=== PATIENT | male | born 1955 | race Caucasian/White ===

== ENCOUNTER 2022-08-25 07:45 | Outpatient (CLI) | payer BC, SELFPAY ==
--- NOTE | ~2022-08-25 | CT_ITS ---
EXAMINATION: CT LE LT wo con DATE: 08/25/2022 08:21 INDICATION: Left knee osteoarthritis. TECHNIQUE: Computed tomography (CT) of the left lower limb was performed without intravenous contrast . Automated exposure control and iterative reconstruction technique were employed. The dose-length pr oduct was 1747.98 mGy-cm. COMPARISON: Left knee radiographs 09/22/2022 FINDINGS: There is moderate left hip osteoarthritis. The left knee demonstrates moderate osteoarthrit is of the medial compartment and mild osteoarthritis of the lateral and patellofemoral compartments. There is a small knee joint effusion. There is mild ankle joint osteoarthritis. There is heterotopic ossification distal to medial malleolus. IMPRESSION: 1. Moderate left knee osteoarthritis. 2. Small left knee joint effusion. 3. Moderate left hip osteoarthritis. Reviewed, dictated and finalized at location A. MIXER OPERATOR
--- NOTE | 2022-08-25 08:25 | ECG_ITS ---
Measurements Intervals [place] Rate: 64 P: 48 MS: 174 QRS: 9 QRSD: 108 T: 38 QT: 393 QTc: 406 Interpretive Statements SINUS RHYTHM DELAYED PRECORDIAL R/S TRANSITION BORDERLINE ECG NO PREVIOUS ECG AVAILABLE FOR COMPARISON Electronically Signed On 08-25-2022 9:27:59 INSURANCE CLAIMS ANALYST by Enrico Portillo D.O.
[2022-08-25 09:07] LABS: Hematocrit 44.6 % (42.0-52.0); Hemoglobin 14.5 g/dL (14.0-18.0)
[2022-08-25 09:22] LABS: Albumin Level 4.3 g/dL (3.5-5.1); Estimated Glomerular Filt Rate > 60; Glucose 151 mg/dL (65-110)
== END 2022-08-25 07:46 | disposition home or self-care (01) ==
PROVIDERS: PCP Family Medicine; Visit Provider Orthopaedic Surgery
DX: M17.12 Unilateral primary osteoarthritis, left knee (principal); I10 Essential (primary) hypertension; Z01.818 Encounter for other preprocedural examination; M25.462 Effusion, left knee; M16.12 Unilateral primary osteoarthritis, left hip
CPT/HCPCS: 36415; 73700; 82040; 82565; 82947; 85014; 85018; 93005

== ENCOUNTER 2022-10-01 11:45 | Outpatient (CLI) | payer BC, SELFPAY ==
[2022-10-01 14:23] LABS: Basophils Percent Auto 0.7 % (0.2-1.2); Eosinophils Absolute Auto 0.2 K/mm3 (0-0.3); Eosinophils Percent Auto 2.5 % (0-4.4); Hematocrit 42.6 % (42.0-52.0); Hemoglobin 13.9 g/dL (14.0-18.0); Immature Granulocyte Absolute 0.02 K/mm3 (0.00-0.031); Immature Granulocyte Percent A 0.3 % (0-0.5); Lymphocytes Absolute Auto 1.09 K/mm3 (0.9-3.2); Lymphocytes Percent Auto 18.2 % (18.3-44.2); Mean Corpuscular HGB Conc 32.6 g/dl (32-36); Mean Corpuscular Hemoglobin 24.8 pg (26-34); Mean Corpuscular Volume 75.9 fl (80-100); Mean Platelet Volume 10.3 fl (7.4-10.4); Monocytes Absolute Auto 0.6 K/mm3 (0.1-0.6); Monocytes Percent Auto 10.5 % (2.6-8.5); Neutrophils Absolute Auto 4.1 K/mm3 (1.3-6.7); Neutrophils Percent Auto 67.8 % (45.5-73.1); Platelet Count Result 258 k/mm3 (150-375); Red Blood Count 5.61 M/mm3 (4.6-6.20); Red Cell Distribution Width 14.3 % (11.5-14.5)
[2022-10-01 14:32] LABS: Anion Gap 11 mmol/L (8-16); Blood Urea Nitrogen 13 mg/dL (9-20); Calcium 8.8 mg/dL (8.4-10.2); Carbon Dioxide 26 mmol/L (22-30); Chloride 98 mmol/L (98-107); Estimated Glomerular Filt Rate > 60; Glucose 181 mg/dL (65-110); Potassium 3.5 mmol/L (3.4-5.0); Sodium 135 mmol/L (137-145)
[2022-10-01 14:36] LABS: Urine Cotinine NEGATIVE
[2022-10-01 16:42] LABS: Hemoglobin A1C 6.7 % (<5.7)
== END 2022-10-01 11:46 | disposition home or self-care (01) ==
LOC: ANHSURGERY 11:58
PROVIDERS: Anesthesiology; PCP Family Medicine; Visit Provider Orthopaedic Surgery
DX: M17.12 Unilateral primary osteoarthritis, left knee (principal); I10 Essential (primary) hypertension; Z01.818 Encounter for other preprocedural examination
CPT/HCPCS: 36415; 80048; 80307; 83036; 85025; 87081

== ENCOUNTER 2022-10-20 00:40 | Day surgery (SDC) | payer BC, SELFPAY ==
[2022-10-01 12:02] VITALS: BMI 33.6
--- NOTE | 2022-10-01 12:40 | PC.NURSE ---
Report to the Outpatient Waiting Room, entrance under the green pavilion located off [facility], at time __0600 on date __10/20/22 . Planned Procedure Time: __07 . Time changes happen often and if your time is changed the preop area will call you the afternoon before. - You and your visitor will be asked to self-screen and do not enter if you have any COVID symptoms. - Only one visitor is requested with a max of two and NO children visitors are allowed at this time. - The patient visitor may be requested to leave or wait in car when not with patient due to distancing restrictions. - A mask is optional within the hospital. Patients may have clear liquids (water, carbonated beverages, clear teas, apple juice) until 3 hours prior to surgery with a maximum of 20 ounces. - No food from midnight until time of surgery - Infants may have breast milk until 4 hours before surgery, formula 6 hours prior to surgery. - Children will be allowed to drink immediately following surgery. If applicable, please bring a bottle or sippy cup to assist with drinking. Juice, water, soda, and popsicles are readily available. For infants on formula, please bring formula the day of surgery. Pacifiers are allowed. Take the following medications with a SIP of water the morning of surgery: _ESCITALOPRAM,METOPROLOL Medications to discontinue per physician __PT STATES HOLD ASPIRIN AND ALL VITAMINS AND SUPPLEMENTS 7 DAYS PRE OP PER DR DUBON Date to take last dose 10/12/22 Please no make-up, nail hungarian, hairspray, perfume, deodorant, or body powder the day of surgery. No jewelry (including any body piercings) or valuables the day of surgery, leave them at home. Please take a shower or bath the night before, or the morning of, surgery with an antibacterial soap. Wear comfortable, loose fitting clothing. Children are encouraged to wear pajamas. - Jewelry must be removed prior to entering the operating room. Rings and piercings that are not removed may be cut off. - The hospital will not accept responsibility for valuables. - Please leave all valuables, including medications, at home the day of surgery. If you are going home after surgery, a licensed show horse driver must drive you home. - NO public transportation without another adult if you receive anesthesia. - We recommend that an adult stay with you for 24 hours following discharge. - We also recommend that you do not drive, make important decision, drink alcoholic beverages, or take any drugs that were not prescribed by your health care provider for at least 24 hours after your discharge time. Follow any additional instructions given to you from your surgeon. If you or anyone in your household have experienced Covid symptoms in the past week, please notify your surgeon or the nurse liaison at the phone number below for possible testing. VERBAL AND WRITTEN instructions given to __PATIENT and asked if any additional questions and then verbalized understanding. Patient advised to call surgeon office or pre surgery nurse liaison [phone] if any additional questions.
[2022-10-01 12:54] VITALS: BP 141/80; PULSE 81; RESP 18; TEMP 36.7; O2SAT 99
--- NOTE | 2022-10-19 14:04 | WPDANESEPPF ---
Anes - Initial Pre Proc Eval Procedure: Operation Date: 10/20/22 07:30 Proposed Procedures p Left Custom Total Knee Arthroplasty - Antonio Cota MD Date/Time: 10/19/22 14:04 Surgeon: Antonio Cota MD Pre Op Diagnosis: primary oa left knee Patient Data Age: 67 Gender: M Height: 1.75 m Weight: 103.3 kg Last Vital Signs Temp 36.7 C 10/01/22 12:54 Pulse 81 10/01/22 12:54 Resp 18 10/01/22 12:54 BP 141/80 H 10/01/22 12:54 Pulse Ox 99 10/01/22 12:54 O2 Del Method Room Air 10/01/22 12:54 Allergies Allergy/AdvReac Type Severity Reaction Status Date / Time No Known Allergies Allergy Verified 10/20/22 06:23 Home Medications Medication Instructions Recorded Confirmed Type escitalopram oxalate 10 mg tablet 10 mg PO DAILY 08/08/19 10/20/22 History hydrochlorothiazide 25 mg tablet 25 mg PO DAILY 08/08/19 10/20/22 History losartan 50 mg tablet 50 mg PO DAILY 08/08/19 10/20/22 History metoprolol succinate 25 mg 12.5 mg PO DAILY 07/24/20 10/20/22 History tablet,extended release 24 hr rosuvastatin 20 mg tablet 20 mg PO DAILY 07/24/20 10/20/22 History aspirin 81 mg tablet,delayed 81 mg PO DAILY 10/01/22 10/20/22 History release (Adult Low Dose Aspirin) cinnamon bark 500 mg capsule 2,000 mg PO DAILY 10/01/22 10/20/22 History (Cinnamon) coQ10 (ubiquinol) 200 mg capsule 400 mg PO DAILY 10/01/22 10/20/22 History glucosamine sulf dipot 1 cap PO DAILY 10/01/22 10/20/22 History chlr,msm,chond 550 mg-C 30 mg-leah 1 mg capsule (Glucosamine Chondroitin) krill 1 cap PO DAILY 10/01/22 10/20/22 History mqn-zb-0-sjc-tlf-pkunxaiqgbghe 300 mg-90 mg-24 mg-50 mg capsule (krill oil) magnesium 200 mg tablet 400 mg PO DAILY 10/01/22 10/20/22 History metformin 750 mg tablet,extended 750 mg PO HS 10/01/22 10/20/22 History release 24 hr dufwnodp-qst-fiqop acid 300 1 tablet PO DAILY 10/01/22 10/20/22 History mcg-lycopene 600 mcg-lutein 300 mcg tablet (Centrum Silver Men) ECG: Date of Service: 08/25/22 Procedure(s): CA 12 lead EKG Accession Number(s): [id number] cc: ~ ? Measurements Intervals? [place]? Rate: ? 64 ? P:? 48 [place]: ? 174? QRS:? 9 QRSD: ? 108? T:? 38 QT: ? 393? QTc:? 406? Interpretive Statements SINUS RHYTHM DELAYED PRECORDIAL R/S TRANSITION BORDERLINE ECG NO PREVIOUS ECG AVAILABLE FOR COMPARISON Electronically Signed On 08-25-2022 9:27:59 PHARMACEUTICAL SALES by Enrico Portillo D.O. Patient hx anesthesia problems: none Family hx anesthesia problems: none Results Review: All pre-operative results and documents have been reviewed as part of the pre-operative evaluation. [facility] Past Medical History Medical History (Updated 10/19/22 @ 14:05 by Jeremias Jasmine MD) Anxiety Depression Diabetes History of aneurysm Hypercholesterolemia Hypertension Left knee pain Neck pain with history of cervical spinal surgery Obesity LYUDMILA on CPAP Primary osteoarthritis of left knee Surgical History Surgical History History of total hip arthroplasty Family History Family History Other Diabetes mellitus Family history of arthritis Social History Social History Years smoked: 8 Smoking status: Former smoker Tobacco type: cigarettes Smoking end date: 09/27/87 Additional smoking assessment comments: DENIES ANY FORM OF TOBACCO USE Alcohol intake: never Lack of Transportation: No Lack of Food: Never True Current Housing: I Have Housing Concerned About Future Housing: No Difficulty Paying Gas/
--- NOTE | 2022-10-19 14:07 | WPDANESPNB ---
Anes - Peripheral Nerve Block Date/Time: 10/19/22 14:07 I have discussed with the patient/family/POA the placement of a peripheral nerve block for post-operative pain management, including associated risks, benefits, complications, and side effects. Alternative methods of post-operative analgesia were detailed. Questions were solicited and answers provided to the satisfaction of the patient/family/POA. Time-Out: A pre-procedural Time-Out was completed immediately before starting the procedure and confirmed: Patient Identification, Site, Procedure, Patient Position and the Availability of Requisite Equipment. Clinical Indications: Acute post-operative pain management requested by the operative surgeon. Nerve Block Insertion Note Anes-nerve block: adductor canal Patient position: supine Skin prep: chlorhexidine Needle: 22 gauge, stimulating, insulated echogenic needle. Needle length: 80 mm Technique: ultrasound Technique comment: in plane Injectate: bupivacaine 0.25% with epi 5 mcg/ml (30cc) Observations: tolerated well Complications: none Procedure start time:: 720 Procedure end time:: 725
[2022-10-20] VITALS (13 sets, daily range): BP systolic 112–156; BP diastolic 57–96; PULSE 63–87; RESP 10–20; TEMP 35.9–36.7; O2SAT 97–100
--- NOTE | ~2022-10-20 | XR_ITS ---
Left Knee Technique: AP and lateral views Clinical History: Status post TKR Findings: Patient is status post total knee replacement. Orthopedic hardware alignment appears anatom ic. No hardware complication is evident. Subcutaneous emphysema and swelling is likely postoperative in nature. No acute osseous fracture is seen. Impression: Status post total knee replacement, without evidence of hardware complication. Reviewed, dictated and finalized at location . ALION FIRE CHIEF Impression: Status post total knee replacement, without evidence of hardware complication.
[2022-10-20] MEDS: ACETAMINOPHEN 500 MG TABLET 1000 MG PO (06:27)
[2022-10-20] MEDS: LACTATED RINGERS 1,000 ML 30 ML IV CONT ×2 (06:40→10:06)
[2022-10-20 06:46] LABS: Glucose Point of Care 127 mg/dl (65-105)
[2022-10-20] MEDS: TRANEXAMIC ACID 1,000MG/ISO100 1,000 MG/100 ML BAG 200 MG IVPB (07:10)
--- NOTE | 2022-10-20 07:16 | WPDHPUPDATE1 ---
History and Physical Update Update Date/Time: 10/20/22 07:16 History and Physical has been reviewed, including an updated exam of the patient. There are NO changes in the patient's condition. Risks, benefits, and alternatives have been discussed and questions answered. Patient agrees to proceed with procedure.
[2022-10-20] MEDS: ceFAZolin 2 GM/D5W 50 ML 2 GM/50 ML BAG IVPB ×3 (07:32→22:42)
[2022-10-20] MEDS: GENTAMICIN BONE CEMENT REFOBACIN 1 EACH TOPICAL (08:25)
[2022-10-20 10:13] LABS: Glucose Point of Care 169 mg/dl (65-105)
[2022-10-20] MEDS: fentaNYL CITRATE INJ (*CRX) 100 MCG/2 ML VIAL 25 MCG IV PUSH ×2 (10:15→10:55)
[2022-10-20] MEDS: SODIUM CHLORIDE 0.9% IV 1,000 ML 125 ML IV CONT (12:21)
--- NOTE | 2022-10-20 14:45 | W.PM.PROC2 ---
Procedure Note - Detailed Date of Procedure 10/20/22 Pre-op Diagnosis primary oa left knee Post-op Diagnosis Same Procedure Performed Total knee arthroplasty, left knee. Surgeon Antonio Cota MD Consulting Technical Manager Rosy Waldron PA-C Anesthesia General and Regional (Subsartorial block.) Findings PSI with Conformis Imprint. Excellent bone quality. Severe chronic varus thrust and varus bow to the tibia. Tibia component placed in slight varus. Moderate to large medial release performed. Description of Procedure Preoperative antibiotics were given. The limb was prepped and draped in the usual sterile fashion with a well-padded tourniquet high on the thigh. The limb was exsanguinated and the tourniquet inflated to 300 mmHg, during exposure. A longitudinal incision was created just medial to the patella. A trivector approach to the knee was performed. Arthrotomy was taken down through the joint capsule. No significant releases were initially taken. The femur was exposed and the F1 jig was applied. The coring tool was used to remove the cartilage for the F2 jig to sit flush with the bone. The jig was pinned and the distal cut carefully taken. Caliper measurements confirmed appropriate bony resections according to the preoperative templated plan. The F4 cutting jig for the femur was applied, at the standard rotation. The AP and anterior chamfer cuts were taken. The F5 jig was applied and the posterior chamfer cuts were taken. The tibia was prepared using the T1 jig, after removing cartilage for the jig contact points. Proper alignment was checked with the alignment subhash. The tibia was cut using the T1u guide. Gap balancing was performed. Gap measurements were taken and the knee was trialed. Excellent alignment and soft tissue balancing was confirmed. The posterior cruciate ligament was recessed along the proximal tibia. Meniscal remnants were removed. The trial components were assembled. Excellent range of motion and proper soft tissue balancing were confirmed throughout the full range of motion. Patellar tracking was excellent. The knee was copiously irrigated periodically throughout the procedure. The real implants were cemented into position. Excess cement was carefully removed. The wound was closed in layers with interrupted #1 Vicryl suture, 2-0 strata fix suture, 0 strata fix suture, 2-0 strata fix suture. Steri-Strips placed on the skin with the knee flexed. Sterile bulky dressing applied. The patient was brought to the recovery room in stable condition. There were no complications. Physician events assistant, Rosy Waldron PA-C, required for surgery; including patient positioning, draping, tissue retraction, maintaining instrument positionl, wound closure, and dressing placement. Implants Conformis Imprint total knee arthroplasty. Cemented. Cruciate retaining. 10mm insert. Estimated Blood Loss -50.0 Drains No Complications No immediate complications Condition Stable Disposition PACU [facility] Billing Surgery - Charge Forward: Surgery Billing
[2022-10-20] MEDS: oxyCODONE HCL (*CRX) 5 MG TAB IR PO ×2 (17:27→22:41)
[2022-10-20] MEDS: SENNA/DOCUSATE SODIUM TABLET 2 TAB PO (17:28)
[2022-10-20] MEDS: ASPIRIN 81 MG ENTERIC TABLET PO (17:28)
[2022-10-20] MEDS: FAMOTIDINE 20 MG TABLET PO (20:47)
[2022-10-20] MEDS: diphenhydrAMINE HCl INJ 50 MG/ML VIAL 25 MG IV PUSH (22:41)
[2022-10-21 00:56] VITALS: BP 110/70; PULSE 82; RESP 14; TEMP 36.8; O2SAT 98
[2022-10-21 05:10] VITALS: BP 128/68; PULSE 75; RESP 14; TEMP 36.6; O2SAT 99
[2022-10-21] MEDS: oxyCODONE HCL (*CRX) 5 MG TAB IR PO (05:36)
[2022-10-21] MEDS: ceFAZolin 2 GM/D5W 50 ML 2 GM/50 ML BAG IVPB (05:38)
[2022-10-21 06:34] LABS: Basophils Percent Auto 0.4 % (0.2-1.2); Eosinophils Percent Auto 0.2 % (0-4.4); Hematocrit 33.9 % (42.0-52.0); Hemoglobin 10.7 g/dL (14.0-18.0); Immature Granulocyte Absolute 0.02 K/mm3 (0.00-0.031); Immature Granulocyte Percent A 0.2 % (0-0.5); Lymphocytes Absolute Auto 1.14 K/mm3 (0.9-3.2); Lymphocytes Percent Auto 13.7 % (18.3-44.2); Mean Corpuscular HGB Conc 31.6 g/dl (32-36); Mean Corpuscular Hemoglobin 24.6 pg (26-34); Mean Corpuscular Volume 77.9 fl (80-100); Mean Platelet Volume 9.5 fl (7.4-10.4); Monocytes Percent Auto 12.2 % (2.6-8.5); Neutrophils Absolute Auto 6.1 K/mm3 (1.3-6.7); Neutrophils Percent Auto 73.3 % (45.5-73.1); Platelet Count Result 174 k/mm3 (150-375); Red Blood Count 4.35 M/mm3 (4.6-6.20); Red Cell Distribution Width 14.6 % (11.5-14.5); White Blood Count 8.3 K/mm3 (4.5-10.0)
[2022-10-21 06:47] LABS: Anion Gap 4 mmol/L (8-16); Blood Urea Nitrogen 15 mg/dL (9-20); Calcium 7.8 mg/dL (8.4-10.2); Carbon Dioxide 26 mmol/L (22-30); Chloride 103 mmol/L (98-107); Estimated CRCL calculation 80 ml/min; Estimated Glomerular Filt Rate > 60; Glucose 127 mg/dL (65-110); Potassium 3.6 mmol/L (3.4-5.0); Sodium 133 mmol/L (137-145)
--- NOTE | 2022-10-21 07:40 | WPDANESPN ---
Anes - Prog Note Post-Op Date/Time: 10/21/22 07:40 Cardiovascular status: normal Respiratory status: normal Airway patency: baseline Mental status: baseline Post-Op hydration status: normal Vital Signs: Last Vital Signs Temp 97.9 F 10/21/22 05:10 Pulse 75 10/21/22 05:10 Resp 14 10/21/22 05:10 BP 128/68 10/21/22 05:10 Pulse Ox 99 10/21/22 05:10 O2 Del Method Room Air 10/20/22 14:04 O2 Flow Rate 8 10/20/22 10:15 Pain Score (VAS): 4 I/O: Intake & Output 10/20/22 10/20/22 10/21/22 15:59 23:59 07:59 Intake Total 650 700 Balance 650 700 Laboratory Tests 10/21/22 06:21 10/21/22 06:21 10/20/22 10/21/22 10/21/22 10:10 06:21 06:21 WBC 8.3 RBC 4.35 L Hgb 10.7 L D Hct 33.9 L MCV 77.9 L MCH 24.6 L MCHC 31.6 L RDW 14.6 H Plt Count 174 MPV 9.5 Immature Gran % (Auto) 0.2 Neut % (Auto) 73.3 H Lymph % (Auto) 13.7 L [place] % (Auto) 12.2 H Eos % (Auto) 0.2 Baso % (Auto) 0.4 Lymph # (Auto) 1.14 [place] # (Auto) 1.0 H Eos # (Auto) 0.0 Baso # (Auto) 0.0 Abs Immat Gran (auto) 0.02 Absolute Neuts (auto) 6.1 Absolute Nucleated RBC 0.0 Nucleated RBC % 0.0 Sodium 133 L Potassium 3.6 Chloride 103 Carbon Dioxide 26 Anion Gap 4 L BUN 15 Creatinine 0.90 Estim Creat Clear Calc 80 Estimated GFR > 60 Glucose 127 H POC Capillary Glucose 169 H Calcium 7.8 L Post-procedural complaints: none Patient Feedback: Patient satisfied with anesthetic care.
--- NOTE | 2022-10-21 09:02 | PM.DS ---
DS: Admitting Diagnosis Discharge Date 10/21/22 Admitting Diagnosis OA knee Left DS: Discharge Diagnosis Discharge Diagnosis (1) Status post total left knee replacement: Code(s): Z96.652 - Presence of left artificial knee joint Status: Acute Assessment and Plan: Postop day 1: Left total knee arthroplasty. Patient tolerated procedure well. No complications. Pain manageable with pain medication. No numbness or tingling. We had a lengthy discussion regarding postoperative wound care, limitations, expectations, and exercises. Patient shows good understanding. He has had initial physical therapy and is tolerating it well. DVT prophylaxis: 81 mg baby aspirin b.i.d. for 14 days. Pain medication: Percocet. Antibiotic: keflex Patient has followup appointment with Dr. Cota in 3 weeks. DS: Summary Hospital Course Reason for hospitalization: Total knee arthroplasty Hospital Course: Patient tolerated procedure well. Has had initial PT/OT. Status at Discharge Functional status at discharge: uses cane/walker Overall status at discharge: patient is progressing back to baseline Time Spent with Patient Time attestation: Total time spent providing and/or coordinating discharge services: Exam Narrative: 67-year-old overweight male. Resting comfortably in bed. Alert and oriented x3. No acute distress. Wearing compression socks bilaterally. Dressing intact without drainage. Mild swelling. No ecchymosis. No erythema. No hematoma. Range of motion limited due to pain. Good quad function. Calf nontender. Neurologic status intact. No varicosities. Distal pulses palpable. DS: Data Data Completed and Pending Labs on day of discharge: Labs from last 24 hours 10/21/22 10/21/22 10/20/22 06:21 06:21 10:10 WBC 8.3 RBC 4.35 L Hgb 10.7 L D Hct 33.9 L MCV 77.9 L MCH 24.6 L MCHC 31.6 L RDW 14.6 H Plt Count 174 MPV 9.5 Immature Gran % (Auto) 0.2 Neut % (Auto) 73.3 H Lymph % (Auto) 13.7 L [place] % (Auto) 12.2 H Eos % (Auto) 0.2 Baso % (Auto) 0.4 Lymph # (Auto) 1.14 [place] # (Auto) 1.0 H Eos # (Auto) 0.0 Baso # (Auto) 0.0 Abs Immat Gran (auto) 0.02 Absolute Neuts (auto) 6.1 Absolute Nucleated RBC 0.0 Nucleated RBC % 0.0 Sodium 133 L Potassium 3.6 Chloride 103 Carbon Dioxide 26 Anion Gap 4 L BUN 15 Creatinine 0.90 Estim Creat Clear Calc 80 Estimated GFR > 60 Glucose 127 H POC Capillary Glucose 169 H Calcium 7.8 L Discharge Plan Discharge Patient Disposition: Home, Self-Care Discharge Instructions: See green instruction sheets Stand Alone Forms: General Discharge Instructions Follow-up/Referrals: Rosy Waldron PA [Physician [employer] Game [employer] Manager] - Discharge Medications: New aspirin 81 mg tablet,delayed release (DR/EC) 81 mg PO BID 14 Days Qty: 28 0RF prednisone 5 mg tablet 5 mg PO DAILY 21 Days Qty: 21 0RF oxycodone-acetaminophen 5-325 mg tablet 1 - 2 tablet PO Q4-6H MDD 6 PRN (Reason: pain) Qty: 30 0RF cephalexin 500 mg capsule 500 mg PO BID 10 Days Qty: 20 0RF Rx Instructions: Take twice a day for 10 days. Continued rosuvastatin 20 mg tablet 20 mg PO DAILY metoprolol succinate 25 mg tablet extended release 24 hr 12.5 mg PO DAILY escitalopram oxalate 10 mg tablet 10 mg PO DAILY hydrochlorothiazide 25 mg tablet 25 mg PO DAILY losartan 50 mg tablet 50 mg PO DAILY metformin 750 mg tablet extended release 24 hr 750 mg PO HS cinnamon bark [Cinnamon] 500 mg Capsule 2,000 mg PO DAILY Centrum Silver Men 300-600-300 mcg Tablet 1 tablet PO DAILY coQ10 (ubiquinol) 200 mg Capsule 400 mg PO DAILY msqpi-gyyqe-5-mzx-vvr-vkezgz [krill oil] 207-29-65-50 mg Capsule 1 cap PO DAILY Glucosamine Chondroitin 550-30-1 mg Capsule 1 cap PO DAILY magnesium 200 mg
[2022-10-21 09:10] VITALS: BP 152/74; PULSE 82; RESP 20; TEMP 36.8; O2SAT 99
[2022-10-21] MEDS: oxyCODONE HCL (*CRX) 5 MG TAB IR 10 MG PO (10:23)
[2022-10-21 11:10] VITALS: PULSE 70
[2022-10-21] MEDS: FAMOTIDINE 20 MG TABLET PO (11:10)
[2022-10-21] MEDS: ASPIRIN 81 MG ENTERIC TABLET PO (11:10)
[2022-10-21] MEDS: predniSONE 5 MG TABLET PO (11:10)
[2022-10-21] MEDS: METOPROLOL SUCCINATE EXT REL 12.5 MG TABCR PO (11:10)
[2022-10-21] MEDS: LOSARTAN POTASSIUM 50 MG TABLET PO (11:11)
[2022-10-21] MEDS: hydroCHLOROthiazide 25 MG TABLET PO (11:11)
[2022-10-21] MEDS: polyethylene glycoL 3350 17 GM POWD.PACK PO (11:11)
[2022-10-21] MEDS: ROSUVASTATIN 10 MG TABLET 20 MG PO (11:11)
[2022-10-21 12:09] VITALS: O2SAT 96
[2022-10-21 13:10] VITALS: BP 133/76; PULSE 76; RESP 18; TEMP 37; O2SAT 99
--- NOTE | 2022-10-21 14:12 | PCOTNOTE ---
Attempted to see patient this pm, however patient declined. present waiting for discharge. Patient and had no concerns as pertains to OT prior to discharge.
== END 2022-10-21 14:35 | disposition home or self-care (01) ==
LOC: ANHSURGERY 09:28 → ANH3MEDSUR 11:27
PROVIDERS: Physician Assistant Surgical; PCP Family Medicine; Visit Provider Orthopaedic Surgery
PROC: (CPT 27447; principal; 2022-10-20 07:30)
DX: M17.12 Unilateral primary osteoarthritis, left knee (principal); G89.18 Other acute postprocedural pain; E11.9 Type 2 diabetes mellitus without complications; E78.00 Pure hypercholesterolemia, unspecified; I10 Essential (primary) hypertension; G47.33 Obstructive sleep apnea (adult) (pediatric); F41.9 Anxiety disorder, unspecified; F32.A Depression, unspecified; Z87.891 Personal history of nicotine dependence; E66.9 Obesity, unspecified; Z68.33 Body mass index [BMI] 33.0-33.9, adult; Z79.82 Long term (current) use of aspirin; Z79.84 Long term (current) use of oral hypoglycemic drugs
CPT/HCPCS: 27447; 64447; 36415; 73560; 80048; 82948; 85025; 86850; 86900; 86901; 97110; 97116; 97161; 97165; 97530; A9270; C1713; C1776; J0131; J0171; J0690; J1100; J1170; J1200; J1885; J2250; J2270; J2370; J2405; J2704; J2795; J3010; J7030; J7120; J7512